=== PATIENT | male | born 1975 | race Caucasian/White ===

== ENCOUNTER 2024-04-01 10:37 | Emergency (ER) | payer OTHER, SELFPAY ==
[2024-04-01 10:41] VITALS: BP 148/99
--- NOTE | 2024-04-01 13:04 | ED.GENMED ---
History of Present Illness
General
Chief Complaint: Dental Problem
Source: patient
Exam Limitations: none
Time Seen by Provider: 04/01/24 12:32
Nursing documentation reviewed up to this point in time: agreed with
Travel History
Have you had any contact with someone who has COVID-19?: No
Do you have any symptoms of coronavirus? Fever > 100 degrees, chills, cough, shortness of breath, sore throat, loss of taste or smell, muscle aches, or headache?: No
History of Present Illness
History of Present Illness:
49-year-old male presents to the ER complaining of right-sided facial swelling and dental pain for the past couple days. Patient was has a history of widespread dental decay but reports he has not been able to see a dentist because he was waiting
on insurance issues with disability. That has since been resolved. He however needs to schedule an appointment. He complains of right-sided facial swelling over the past couple days has some mild discomfort but denies any pain denies any actual
fever chills difficulty opening his mouth difficulty swallowing.
He took several doses of his friend's Cipro .
Pt presents tachycardic reports he has a history of sinus tachycardia (120 s)he has been evaluated for this and followed by cardiology. He is asymptomatic denies any palpitation shortness of breath chest pain. He has history of PE and is
anticoagulated on Eliquis has not missed a dose.
Past History
Past History
ED Past Medical History: Psychiatric
ED Past Surgical History: None
Social History
Tobacco: Smoker
Alcohol: Occasional
Drug: None
Living: with family
Employment: Employed
Family History
Family History: Other
Review of Systems
Review of Systems
Allergies reviewed?: Yes
All Other Systems: ROS reviewed and negative except as documented in HPI and ROS
Constitutional: Reports no symptoms; Denies fever, fatigue or chills
EENT: Reports other (right sided facial swelling dental decay)
Respiratory: Reports no symptoms; Denies trouble breathing
Cardiac: Reports no symptoms; Denies chest pain, diaphoresis, palpitations or syncope
ABD/GI: Reports no symptoms
: Reports no symptoms
Musculoskeletal: Reports no symptoms
Skin: Reports no symptoms
Hematologic/Lymphatic: Reports no symptoms
Psychiatric: Reports no symptoms
Phy Exam
General Physical Exam
General Presentation: well appearing
General age: appears stated age
General Skin: warm and dry
General Habitus: normal
General Mental: alert
General Hydration: appears well hydrated
ENT Exam
ENT Exam: EOMI, neck supple and other (mild right sided facial swelling no trismus + widespread dental decay no obvious abscess or fluctuance)
Cardiovascular Exam
Cardiovascular Exam: tachycardia
Musculoskeletal Exam
Musculoskeletal Exam: full ROM
Skin Exam
Skin Exam: normal color and warm/dry
Psychiatric Exam
Psychiatric Exam: normal mood/affect
Course
Orders/Labs/Results
Orders:
Orders
04/01/24 10:46
EKG [Electrocardiogram (*1)] Urgent
Reason for Study: Tachycardia
EKG- Treatment ONCE
Vital Signs
Initial and Last Documented VS:
Initial Vital Signs
Temp Pulse Resp BP Pulse Ox
98.4 F 138 18 148/99 99
04/01/24 10:41 04/01/24 10:41 04/01/24 10:41 04/01/24 10:41 04/01/24 10:41
Last Documented Vital Signs
Temp Pulse Resp BP Pulse Ox
98.4 F 138 18 148/99 99
04/01/24 10:41 04/01/24 10:41 04/01/24 10:41 04/01/24 10:41 04/01/24 10:41
MDM/Problems Addressed
Differential Diagnosis Includes:
Not limited to dental cavities, widespread dental decay
MDM/Problems Addressed:
Patient with widespread dental decay but no obvious gum abscess or fluctuance will penicillin with close outpt f/u by oral surg.
Patient nontoxic no trismus no difficulty breathing. Incidentally patient is tachycardic he tells me he has been fully worked up by cardiology at [place] for tachycardia without a reason. He is asymptomatic history of PE on Eliquis has not missed
a dose. He reports his heart rate is normally in the 120s at times
Chronic conditions affecting care:
On Eliquis for PE not
*Pulse Oximetry
Patient hypoxic: no
*EKG
Interpreted by ED Provider?: Yes
Heart Rate: 122
Rate: tachycardiac
Rhythm: sinus
Ischemia: no ischemia
*Critical Care Note
Total Time (30-74mins, 75-104mins- exclusive of procedures): Not Applicable
ED Attending Note
-
Portions of this chart may have been created with voice recognition software.� Occasional wrong word or��sound alike� substitutions may have occurred due to the inherent limitations of voice recognition software.
Discharge Plan
Departure
Patient Disposition: Home (Routine Discharge)
Date of Disposition: 04/01/24
Time of Disposition: 13:32
Patient with high blood pressure during this ER visit?: Yes
Covid-19: Not Applicable
Discharge Problem:
Pain, dental
Instructions: Dental Pain (DC), BLOOD PRESSURE
Prescriptions:
New
penicillin V potassium 500 mg tablet
500 mg PO QID Qty: 40 0RF
No Action
clonidine HCl 0.1 mg tablet
0.1 mg PO DAILY
sertraline 100 mg tablet
100 mg PO DAILY
omeprazole 20 mg capsule,delayed release(DR/EC)
20 mg PO DAILY
Invega Sustenna 234 mg/1.5 mL syringe
0 mg IM MONTHLY
Eliquis 5 mg tablet
5 mg PO BID
amoxicillin-pot clavulanate 875-125 mg tablet
1 tab PO Q12H Qty: 20 0RF
Referrals:
Juana Haro CRNP [Family Provider] -
Activity Restrictions/Additional Instructions:
As discussed a prescription for penicillin was sent to your pharmacy take as directed every 6 hours.
You May take Tylenol for discomfort. Follow-up with oral surgeon as you have widespread dental decay and need extractions.
Return if any worsening of symptoms include increasing pain facial swelling difficulty breathing or fevers.
Interventions
Interventions:
*General Assessment Last Done: 04/01/24 10:41
*ED COVID-19 Vaccine History Last Done: 04/01/24 10:41
Discharge Date and Time
Print Language: AZERI
[2024-04-01 13:26] VITALS: BMI 35.2
[2024-04-01] MEDS: PEN VK 500 MG PO (13:56)
[2024-04-01 14:14] VITALS: BP 126/88
== END 2024-04-01 14:15 | disposition home or self-care (01) ==
LOC: EMR 10:37
PROVIDERS: EMERGENCY PHYSICIAN Emergency Medicine; FAMILY PHYSICIAN Family Medicine Adult Medicine
DX: K08.89 Other specified disorders of teeth and supporting structures (principal); K02.9 Dental caries, unspecified; R22.0 Localized swelling, mass and lump, head; R00.0 Tachycardia, unspecified; R03.0 Elevated blood-pressure reading, without diagnosis of hypertension; J45.909 Unspecified asthma, uncomplicated; F41.9 Anxiety disorder, unspecified; F32.A Depression, unspecified; F42.9 Obsessive-compulsive disorder, unspecified; F20.9 Schizophrenia, unspecified; F41.0 Panic disorder [episodic paroxysmal anxiety]; G47.33 Obstructive sleep apnea (adult) (pediatric); F17.200 Nicotine dependence, unspecified, uncomplicated; Z86.711 Personal history of pulmonary embolism; Z79.01 Long term (current) use of anticoagulants
CPT/HCPCS: 99283; 93005

== ENCOUNTER 2024-05-08 17:57 | Emergency (ER) | payer OTHER, SELFPAY ==
[2024-05-08 18:01] VITALS: BP 152/100
[2024-05-08] MEDS: TYLENOL 1000 MG PO (19:59)
[2024-05-08 20:16] LABS: % Basophils 0.5 % (0-2); % Eosinophils 4.4 % (0-6); % Immature Granulocytes 0.4 % (0-0.5); % Lymphocytes 24.2 % (20.5-51.1); % Monocytes 6.3 % (1.7-9.3); % Neutrophils 64.2 % (42.2-75.2); Absolute Eosinophils 0.4 10^3/uL (0-0.7); Absolute Monocytes 0.5 10^3/uL (0.1-0.6); Absolute Neutrophils 5.3 10^3/uL (1.4-6.5); Hematocrit 33.3 % (39.0-52.0); Hemoglobin 10.7 g/dL (13.0-18.0); Mean Corp Hgb Conc. 32.1 g/dL (33.0-37.0); Mean Corpuscular Hgb 21.7 pg (27.0-31.0); Mean Corpuscular Volume 67.5 fL (80.0-94.0); Mean Platelet Volume 8.8 fL (7.4-10.4); Nucleated Red Blood Cells % 0 % (-); Platelet Count 352 10^3/uL (130-400); Red Blood Cell Count 4.93 10^6/uL (4.70-6.10); Red Cell Dist. Width 16.7 % (11.5-14.5); White Blood Cell Count 8.2 10^3/uL (4.8-10.8)
[2024-05-08 20:30] LABS: ALT (SGPT) 26 U/L (0-50); AST (SGOT) 26 U/L (17-59); Albumin 4.3 g/dl (3.5-5.0); Alkaline Phosphatase 103 U/L (38-126); Blood Urea Nitrogen 7 mg/dl (9-20); Calcium 9.3 mg/dl (8.4-10.2); Carbon Dioxide 25 mmol/L (22-30); Chloride 98 mmol/L (98-107); Glucose 218 mg/dl (70-99); Potassium 4.4 mmol/L (3.5-5.1); Sodium 135 mmol/L (135-145); Total Bilirubin 0.5 mg/dl (0.2-1.3); Total Protein 7.6 g/dl (6.3-8.2); eGFR > 60.00
[2024-05-08] MEDS: AUGMENTIN 875 MG/125 MG 1 TABLET PO (20:38)
--- NOTE | 2024-05-08 21:20 | ED.GENMED ---
History of Present Illness
General
Chief Complaint: Oral/Mouth Problem
Source: patient
Exam Limitations: none
Time Seen by Provider: 05/08/24 19:10
Nursing documentation reviewed up to this point in time: agreed with
Travel History
Have you had any contact with someone who has COVID-19?: No
Do you have any symptoms of coronavirus? Fever > 100 degrees, chills, cough, shortness of breath, sore throat, loss of taste or smell, muscle aches, or headache?: No
History of Present Illness
History of Present Illness:
49-year-old male with past medical history as documented presents for evaluation of left dental pain. Patient reports that he has dental caries on the left and has had recurrent infection associated with this. He says that he has been recommended
to see dentist or oral surgeon many times in the past but has failed to follow-up due to insurance issues�'I am waiting for disability to kick in.' This has been an ongoing issue for the past few months, last dose of antibiotics was about a month
ago. He says that over the past few days he has once again had some aching pain in the left side of his face/upper teeth. He has not noticed any swelling but says that this is typically how his symptoms began when he is developing an infection.
Came to the emergency room for assessment. He denies any trauma. He denies any fevers or chills. He denies any other complaints.
Past History
Past History
ED Past Medical History: Psychiatric
ED Past Surgical History: None
Social History
Tobacco: Smoker
Alcohol: Occasional
Drug: None
Living: with family
Employment: Employed
Family History
Family History: Other
Review of Systems
Review of Systems
All Other Systems: ROS reviewed and negative except as documented in HPI and ROS
Constitutional: Denies fever or chills
EENT: Reports other (Dental pain)
Respiratory: Denies trouble breathing
Cardiac: Denies chest pain
ABD/GI: Denies abdominal pain
: Denies flank pain
Musculoskeletal: Denies neck pain or back pain
Neurological: Denies dizzy or headache
Phy Exam
Physical Exam
Physical Exam:
General: Awake, alert, oriented x3; no acute distress
Head: Normocephalic, atraumatic
Face: No swelling of the face, no tenderness to the maxillary region or the rest of the facial bones
Eyes: Conjunctiva normal, EOMI
Throat: Airway intact, handling secretions; patient has poor dentition, missing multiple teeth; he has tooth decay left upper molars and some localized swelling of the gum around the left second molar (tooth #16)
Neck: Trachea midline
Lungs: Clear to auscultation bilaterally, no wheezing, rales, rhonchi
Heart: Regular rate and rhythm, no murmurs, gallops, or rubs
Neuro: No gross deficits
Extremities: Moving all extremities equally
Scores
Heart Failure Risk
Heart Failure Risk Score: Not Applicable
Heart Score for Chest Pain Patients
STEMI patient?: Not applicable
Withdrawal Assessment of Alcohol
Withdrawal Assessment Completed?: Not applicable
Course
Orders/Labs/Results
Orders:
Orders
05/08/24 18:04
EKG [Electrocardiogram (*1)] Urgent
Reason for Study: Tachycardia
EKG- Treatment ONCE
05/08/24 19:46
PX Panelipse Urgent
Comment:
Reason For Exam: left dental pain
05/08/24 19:47
Acetaminophen [Tylenol] 1,000 mg PO NOW STA
05/08/24 20:08
Complete Blood Count/With Diff Urgent
Comprehensive Metabolic Panel Urgent
05/08/24 20:26
Amoxicillin 875 mg/Clav 125 mg [Augmentin 875 mg/125 mg] 1 tablet PO NOW STA
05/08/24 21:22
Vital Signs- Treatment ONCE
Frequency: Once
Comment: TEMP
Abnormal Lab Results
05/08/24
20:08
Hgb 10.7 L g/dL
(13.0-18.0)
Hct 33.3 L %
(39.0-52.0)
MCV 67.5 L fL
(80.0-94.0)
MCH 21.7 L pg
(27.0-31.0)
MCHC 32.1 L g/dL
(33.0-37.0)
RDW 16.7 H %
(11.5-14.5)
BUN 7 L mg/dl
(9-20)
Glucose 218 H mg/dl
(70-99)
05/08/24 20:08
05/08/24 20:08
Vital Signs
Initial and Last Documented VS:
Initial Vital Signs
Pulse Resp BP Pulse Ox
127 22 152/100 98
05/08/24 18:01 05/08/24 18:01 05/08/24 18:01 05/08/24 18:01
Last Documented Vital Signs
Pulse Resp BP Pulse Ox
130 22 131/96 98
05/08/24 21:30 05/08/24 18:01 05/08/24 21:30 05/08/24 21:30
MDM/Problems Addressed
Differential Diagnosis Includes:
Dental abscess, dental caries, dental fracture
MDM/Problems Addressed:
49-year-old male with history as above presents for evaluation of left upper molar pain�has had recurrent issues with dental infections in this area but has been having trouble following up with oral surgeon/dentist. Hypertensive and tachycardic.
Afebrile. Exam as above. Suspect likely early dental abscess. Will check Panorex. Check basic labs. Treat with Tylenol. Cover with Augmentin. Reassess after the above.
Labs show stable anemia. CMP shows nonfasting hyperglycemia in the setting of known diabetes, no other clinically significant abnormalities. Panorex reviewed by me appears to show periapical abscess on the left but awaiting final radiology report.
Panorex x-ray shows dental caries, stable bony lucency through to the remaining left maxillary molar teeth. Will plan to treat empirically for dental infection with Augmentin. Patient family needs to be seen by dentist and likely oral surgeon.
Had a long discussion with the patient he says that he has had trouble with his insurance and has therefore not sought follow-up. I explained to him that there are many options for dental carry even for uninsured patients. I provided him with 2
dental clinics including [facility] and [facility] as well as local [facility] (in [place]) which takes free walk-in appointments twice a week. I urged him to follow-up with these rather than waiting for disability or insurance to kick
in. Stable for discharge at this point in time. We spoke about return precautions all questions were answered.
*Radiology
Radiology exam reviewed: preliminary read by ED provider and radiology read reviewed
*Pulse Oximetry
Patient hypoxic: no
*Critical Care Note
Total Time (30-74mins, 75-104mins- exclusive of procedures): Not Applicable
Data Reviewed
Review of Other/Old Records Reveals: Labs, Records and Radiology Studies
Source: patient and records
ED Attending Note
-
Portions of this chart may have been created with voice recognition software.� Occasional wrong word or��sound alike� substitutions may have occurred due to the inherent limitations of voice recognition software.
Discharge Plan
Departure
Patient Disposition: Home (Routine Discharge)
Date of Disposition: 05/08/24
Time of Disposition: 21:42
Patient with high blood pressure during this ER visit?: No
Discharge Problem:
Abscess, dental
Instructions: Dental Pain (DC)
Prescriptions:
New
amoxicillin-pot clavulanate 875-125 mg tablet
1 tab PO BID Qty: 20 0RF
No Action
clonidine HCl 0.1 mg tablet
0.1 mg PO DAILY
sertraline 100 mg tablet
100 mg PO DAILY
omeprazole 20 mg capsule,delayed release(DR/EC)
20 mg PO DAILY
Invega Sustenna 234 mg/1.5 mL syringe
0 mg IM MONTHLY
Eliquis 5 mg tablet
5 mg PO BID
amoxicillin-pot clavulanate 875-125 mg tablet
1 tab PO Q12H Qty: 20 0RF
penicillin V potassium 500 mg tablet
500 mg PO QID Qty: 40 0RF
Referrals:
[facility] [Outside] - Call in 1-3 days for appt
Juana Haro CRNP [Family Provider] -
Activity Restrictions/Additional Instructions:
Thank you for visiting the Emergency Department at [facility].
1. Please schedule a follow up appointment as directed. Call first thing tomorrow morning to make an appointment.
2. If indicated, please take your medications as instructed and indicated on discharge paperwork.
3. If any of your symptoms do not improve, or persist, or become more severe within 6-12 hours, please return to the emergency department for further care.
4. Please return to the emergency department if you develop a headache, neck pain/stiffness, fever greater than 100.4F, chest pain, shortness of breath, persistent nausea, vomiting, slurred speech, difficulty walking, numbness/tingling, weakness,
signs of infection or any other symptoms that are worrisome to you.
Please call [phone] if you have any questions.
Interventions
Interventions:
*Risk Screen - Suicide Last Done: 05/08/24 18:01
*General Assessment Last Done: 05/08/24 18:01
*Neglect/Abuse Screening Last Done: 05/08/24 18:01
Discharge Date and Time
Print Language: FRENCH
[2024-05-08 21:30] VITALS: BP 131/96
[2024-05-08 21:48] VITALS: BP 131/96
== END 2024-05-08 21:49 | disposition home or self-care (01) ==
LOC: EMR 17:57
PROVIDERS: EMERGENCY PHYSICIAN Emergency Medicine; FAMILY PHYSICIAN Family Medicine Adult Medicine
DX: K04.7 Periapical abscess without sinus (principal); F17.200 Nicotine dependence, unspecified, uncomplicated; R03.0 Elevated blood-pressure reading, without diagnosis of hypertension
CPT/HCPCS: 99285; 70355; 80053; 85025; 93005

== ENCOUNTER 2025-01-25 13:37 | Emergency (ER) | payer MEDICARE, SELFPAY ==
[2025-01-25 13:43] VITALS: BP 155/97
[2025-01-25 14:23] LABS: % Basophils 0.6 % (0-2); % Eosinophils 4.9 % (0-6); % Immature Granulocytes 0.2 % (0-0.5); % Lymphocytes 15.7 % (20.5-51.1); % Monocytes 7.1 % (1.7-9.3); % Neutrophils 71.5 % (42.2-75.2); Absolute Basophils 0.1 10^3/uL (0-0.2); Absolute Eosinophils 0.4 10^3/uL (0-0.7); Absolute Lymphocytes 1.3 10^3/uL (1.2-3.4); Absolute Monocytes 0.6 10^3/uL (0.1-0.6); Absolute Neutrophils 5.7 10^3/uL (1.4-6.5); Hematocrit 29.4 % (39.0-52.0); Hemoglobin 8.3 g/dL (13.0-18.0); Mean Corp Hgb Conc. 28.2 g/dL (33.0-37.0); Mean Corpuscular Volume 67.3 fL (80.0-94.0); Mean Platelet Volume 9.2 fL (7.4-10.4); Nucleated Red Blood Cells % 0 % (-); Platelet Count 350 10^3/uL (130-400); Red Blood Cell Count 4.37 10^6/uL (4.70-6.10); Red Cell Dist. Width 17.6 % (11.5-14.5)
[2025-01-25 14:41] LABS: NT-proBNP 34.1 pg/ml
[2025-01-25 14:47] LABS: ALT (SGPT) 25 U/L (0-50); AST (SGOT) 25 U/L (17-59); Albumin 3.8 g/dl (3.5-5.0); Alkaline Phosphatase 80 U/L (38-126); Blood Urea Nitrogen 9 mg/dl (9-20); Calcium 8.9 mg/dl (8.4-10.2); Carbon Dioxide 24 mmol/L (22-30); Chloride 100 mmol/L (98-107); Glucose 235 mg/dl (70-99); Potassium 3.9 mmol/L (3.5-5.1); Sodium 132 mmol/L (135-145); Total Bilirubin 0.6 mg/dl (0.2-1.3); Total Protein 6.6 g/dl (6.3-8.2); eGFR > 60.00
[2025-01-25 14:48] LABS: Anisocytosis 1+; Hypochromasia 3+; Normal RBC Morphology No; Polychromasia 1+
[2025-01-25 14:49] LABS: Ovalocytes 1+
[2025-01-25 14:51] VITALS: BP 154/88
[2025-01-25 14:52] VITALS: BMI 35.7
--- NOTE | 2025-01-25 14:54 | ED.GENMED ---
History of Present Illness
General
Chief Complaint: Swelling
Source: patient
Exam Limitations: none
Time Seen by Provider: 01/25/25 14:48
History of Present Illness
History of Present Illness:
See MDM
Past History
Past History
ED Past Medical History: Psychiatric
ED Past Surgical History: None
Social History
Tobacco: Smoker
Alcohol: Occasional
Drug: None
Living: with family
Employment: Employed
Family History
Family History: Other
Phy Exam
Physical Exam
Physical Exam:
See MDM
Scores
Heart Failure Risk
Heart Failure Risk Score: Not Applicable
Course
Orders/Labs/Results
Orders:
Orders
01/25/25 14:12
BNP [NT-proBNP] Urgent
Complete Blood Count/With Diff Urgent
Comprehensive Metabolic Panel Urgent
Troponin I Urgent
Comment: ADD ON
01/25/25 14:52
0.9% Sodium Chloride 1000 ml [Nss] 1,000 ml IV BOLUS
Insulin Aspart [NOVOLOG vial] 3 units SC NOW STA
CR Chest - 2 Views Urgent
Comment:
Reason For Exam: SOB
01/25/25 14:57
Urinalysis Reflex To Culture Urgent
01/25/25 14:59
Electrocardiogram (*1) Urgent
Reason for Study: Shortness of Breath
EKG- Treatment ONCE
01/25/25 15:22
Add On- LAB Urgent
Tests Added?: troponin
01/25/25 15:28
COVID-19 Antigen Urgent
Source: Nasal Swab
Influenza A+B Rapid Molecular Urgent
SHEILA Source: Nasal Swab
Specimen Description:
Abnormal Lab Results
01/25/25
14:12
RBC 4.37 L 10^6/uL
(4.70-6.10)
Hgb 8.3 L g/dL
(13.0-18.0)
Hct 29.4 L %
(39.0-52.0)
MCV 67.3 L fL
(80.0-94.0)
MCH 19.0 L pg
(27.0-31.0)
MCHC 28.2 L g/dL
(33.0-37.0)
RDW 17.6 H %
(11.5-14.5)
Lymphocytes % 15.7 L %
(20.5-51.1)
Sodium 132 L mmol/L
(135-145)
Glucose 235 H mg/dl
(70-99)
01/25/25 14:12
01/25/25 14:12
Vital Signs
Initial and Last Documented VS:
Initial Vital Signs
Temp Pulse Resp BP Pulse Ox
98.1 F 115 20 155/97 99
01/25/25 13:43 01/25/25 13:43 01/25/25 13:43 01/25/25 13:43 01/25/25 13:43
Last Documented Vital Signs
Temp Pulse Resp BP Pulse Ox
98.1 F 96 16 131/93 95
01/25/25 13:43 01/25/25 16:05 01/25/25 16:05 01/25/25 16:00 01/25/25 16:05
MDM/Problems Addressed
Differential Diagnosis Includes:
HPI and MDM Narrative:
49-year-old male presenting for evaluation of uncontrolled diabetes. Patient states he has been urinating frequently and has had increased thirst. This is associate with mild shortness of breath. He is more concerned that his legs are becoming
swollen and he is losing hair to his legs., He is clinically dry. Will give IV fluids for his on small dose of insulin. Will ultimately place on metformin discussed the importance of follow-up with his primary care
Given his shortness of breath, will obtain chest x-ray. Bicarb within normal limits indicating less concern for Kusmal breathing or acidosis.
He does have what appears to be dependent edema to lower legs. BNP within normal limits.
Patient states he is compliant with Eliquis indicating the DVT and PE is less likely
Physical exam
General: Well appearing and non-toxic
HEENT: protecting airway
Neck: appears supple
CV: No evidence of cyanosis. Tachycardic
Resp: No accessory muscle use. Lungs clear
Abd: Non-distended
Extremities: Mild distal dependent leg edema. Pulses intact but evidence of peripheral vascular disease with distal hair loss
Neuro: alert
Psych: Normal affect
Skin: Intact
Problems Addressed including Acute and Chronic Conditions affecting care:
1. Uncontrolled diabetes
Acuity: acute
Prognosis: stable
Details: No evidence of DKA. Will give dose of insulin
2. Dehydration
Acuity: acute
Prognosis: stable
Details: Likely in setting of uncontrolled diabetes. Will give IV fluid
3. Shortness of breath
Acuity: acute
Prognosis: stable
Details: Will obtain chest x-ray
Updates
Chest x-ray clear. On multiple reassessments, patient sleeping comfortably. We discussed appropriate diet for diabetes. Will start metformin. Discussed importance of follow-up with PCP
Differential Diagnosis (but not limited to): Viral syndrome, uncontrolled diabetes, dehydration,
Testing considered: Troponin
Drug therapy (if applicable): OTC meds, please see d/c instruction regarding Rx drugs
Amount and/or Complexity of Data Reviewed
Clinical info obtained from: Patient
External data reviewed: N/A
Labs I independently reviewed (but not limited to): Hyperglycemia, BNP normal
Radiology: X-ray independently reviewed: Chest x-ray clear
Pulse Ox: not hypoxic
EKG independently reviewed: Sinus tachycardia, normal axis, no STEMI
Weigher Alloy: Sinus rhythm
Critical Care: N/A
Risk of Complication:
Social Determinants of health: Good social support
Discussed with other providers: N/A
Escalation of Care includes Admit/Obs: After being observed in the Emergency Department, pt stable for discharge.
Occasional wrong word or 'sound a like' substitutions may have occurred due to the inherent limitations of voice recognition software. Read the chart carefully and recognize, using context, where substitutions have occurred.
*Critical Care Note
Total Time (30-74mins, 75-104mins- exclusive of procedures): Not Applicable
ED Attending Note
-
Portions of this chart may have been created with voice recognition software.� Occasional wrong word or��sound alike� substitutions may have occurred due to the inherent limitations of voice recognition software.
Discharge Plan
Departure
Patient Disposition: Home (Routine Discharge)
Date of Disposition: 01/25/25
Time of Disposition: 17:13
Patient with high blood pressure during this ER visit?: Yes
Discharge Problem:
Diabetes
Instructions: Carb counting for adults with diabetes, The ABCs of diabetes, Diabetes and diet
Prescriptions:
New
metformin 500 mg tablet
500 mg PO BID Qty: 60 0RF
No Action
clonidine HCl 0.1 mg tablet
0.1 mg PO DAILY
sertraline 100 mg tablet
100 mg PO DAILY
omeprazole 20 mg capsule,delayed release(DR/EC)
20 mg PO DAILY
Invega Sustenna 234 mg/1.5 mL syringe
0 mg IM MONTHLY
Eliquis 5 mg tablet
5 mg PO BID
amoxicillin-pot clavulanate 875-125 mg tablet
1 tab PO Q12H Qty: 20 0RF
penicillin V potassium 500 mg tablet
500 mg PO QID Qty: 40 0RF
amoxicillin-pot clavulanate 875-125 mg tablet
1 tab PO BID Qty: 20 0RF
Referrals:
UNKNOWN - PT DOES,NOT KNOW [Family Provider] -
Activity Restrictions/Additional Instructions:
Please return for any worsening symptoms.
You may return at any time if you have further concerns.
Please follow up with your doctor at the first available appointment, preferably this week. You need to discuss your uncontrolled blood sugar.
Thank you for choosing [facility].
Interventions
Interventions:
*General Assessment Last Done: 01/25/25 13:43
*ED- Fall Risk Assessment Last Done: 01/25/25 14:52
*ED COVID-19 Vaccine History Last Done: 01/25/25 14:52
ED-Skin Assessment Last Done: 01/25/25 14:53
ED- Pulmonary Assessment Last Done: 01/25/25 14:52
ED- Cardiac Assessment Last Done: 01/25/25 14:52
Discharge Date and Time
Print Language: ALBANIAN
[2025-01-25] MEDS: NOVOLOG vial 3 UNITS SC (15:02)
[2025-01-25] MEDS: NSS 1000 IV (15:03)
[2025-01-25 15:56] LABS: COVID-19 Antigen Negative (Negative)
[2025-01-25 16:00] VITALS: BP 131/93
[2025-01-25 16:48] LABS: Troponin I < 0.012 ng/ml
[2025-01-25 17:00] VITALS: BP 144/88
[2025-01-25] MEDS: TYLENOL 1000 MG PO (17:23)
== END 2025-01-25 17:28 | disposition home or self-care (01) ==
LOC: EMR 13:37
PROVIDERS: EMERGENCY PHYSICIAN Student in an Organized Health Care Education/Training Program
DX: E11.65 Type 2 diabetes mellitus with hyperglycemia (principal); E86.0 Dehydration; R06.02 Shortness of breath; R60.0 Localized edema; F17.200 Nicotine dependence, unspecified, uncomplicated; Z11.52 Encounter for screening for COVID-19; Z79.01 Long term (current) use of anticoagulants
CPT/HCPCS: 99285; 96372; 96360; 71046; 80053; 83880; 84484; 85025; 87502; 87811; 93005